=== PATIENT | female | born 1990 | race Two or more races ===

== ENCOUNTER 2016-11-23 12:07 | Emergency (ER) | payer MEDICAID, OTHER ==
[~2016-11-23] VITALS: Ht 157.5 cm; Wt 87.0 kg
[~2016-11-23 12:07] MED LIST: METH40TA3 PO; PTU PO; SERT100T PO
[2016-11-23] MEDS ORDERED: SODIUM CHLORIDE 0.9% 1,000 ML IV ONE (12:39)
[2016-11-23 12:56] LABS: HEMATOCRIT 32.6 % (34.6-47.8); HEMOGLOBIN 10.6 g/dL (11.7-16.4); WHITE BLOOD COUNT 6.4 x10^3/uL (3.4-10)
[2016-11-23] MEDS ORDERED: MORPHINE SULFATE 4 MG/ML, 1ML ONE (12:56)
[2016-11-23] MEDS ORDERED: ONDANSETRON 2MG/ML, 2ML ONE (12:56)
[2016-11-23] MEDS ORDERED: LORazepam 2 MG/ML, 1ML ONE (12:57)
[2016-11-23] MEDS ORDERED: MORPHINE SULFATE 4 MG/ML, 1ML IVPush PRN (13:00)
[2016-11-23] MEDS ORDERED: ONDANSETRON 2MG/ML, 2ML IVPush ONE (13:00)
[2016-11-23] MEDS ORDERED: LORazepam 2 MG/ML, 1ML IVPush ONE (13:00)
[2016-11-23 13:08] LABS: BLOOD UREA NITROGEN 6 mg/dL (7-18)
[2016-11-23 14:27] VITALS: BP 112/80
== END 2016-11-23 14:38 | disposition home or self-care (01) ==
LOC: ED 14:31
DX: G43.119 Migraine with aura, intractable, without status migrainosus (principal); G44.219 Episodic tension-type headache, not intractable; E05.90 Thyrotoxicosis, unspecified without thyrotoxic crisis or storm
CPT/HCPCS: 36415; 70450; 80048; 82040; 84439; 84443; 85025; 85610; 93005; 96361; 96374; 96375; 99285; J2060; J2405; J7030

== ENCOUNTER 2016-11-27 20:20 | Emergency (ER) | payer OTHER ==
[~2016-11-27] VITALS: Ht 157.5 cm; Wt 86.4 kg
[2016-11-27] MEDS ORDERED: SODIUM CHLORIDE 0.9% 1,000ML IVBOLUS ONE (21:30)
[2016-11-27] MEDS ORDERED: ONDANSETRON 2MG/ML, 2ML IVPush ONE (21:30)
[2016-11-27] MEDS ORDERED: MORPHINE SULFATE 4 MG/ML, 1ML IVPush PRN (21:30)
[2016-11-27] MEDS ORDERED: MORPHINE SULFATE 4 MG/ML, 1ML ONE (21:30)
[2016-11-27] MEDS ORDERED: ONDANSETRON 2MG/ML, 2ML ONE (21:30)
[2016-11-27 21:37] LABS: HEMATOCRIT 35.4 % (34.6-47.8); HEMOGLOBIN 11.3 g/dL (11.7-16.4); WHITE BLOOD COUNT 8.9 x10^3/uL (3.4-10)
[2016-11-27 21:45] LABS: BLOOD UREA NITROGEN 5 mg/dL (7-18)
[2016-11-27] MEDS ORDERED: KETOROLAC 30 MG/1 ML ONE (22:16)
[2016-11-27] MEDS ORDERED: DIPHENHYDRAMINE 50 MG/ML, 1ML ONE (22:17)
[2016-11-27] MEDS ORDERED: PROCHLORPERAZINE 5 MG/ML, 2ML ONE (22:17)
[2016-11-27] MEDS ORDERED: OMNIPAQUE 300 MG/ML, 10ML VIAL ONE (22:28)
[2016-11-27] MEDS ORDERED: PROCHLORPERAZINE 5 MG/ML, 2ML IVPush ONE (22:30)
[2016-11-27] MEDS ORDERED: DIPHENHYDRAMINE 50 MG/ML, 1ML IVPush ONE (22:30)
[2016-11-27] MEDS ORDERED: KETOROLAC 30 MG/1 ML IVPush ONE (22:30)
[2016-11-27 23:04] VITALS: BP 123/69
== END 2016-11-27 23:13 | disposition home or self-care (01) ==
LOC: ED 23:07
DX: H61.23 Impacted cerumen, bilateral (principal); K02.9 Dental caries, unspecified; R51 Headache; G43.909 Migraine, unspecified, not intractable, without status migrainosus; E05.90 Thyrotoxicosis, unspecified without thyrotoxic crisis or storm; Z90.49 Acquired absence of other specified parts of digestive tract
CPT/HCPCS: 36415; 70491; 80048; 82040; 85025; 96361; 96374; 96375; 99285; J0780; J1200; J1885; J2405; J7030; Q9967

== ENCOUNTER 2017-07-05 17:12 | Emergency (ER) | payer OTHER ==
[~2017-07-05] VITALS: Ht 157.5 cm; Wt 88.0 kg
[2017-07-05] MEDS ORDERED: SODIUM CHLORIDE 0.9% 1,000 ML IV ONE (17:28)
[2017-07-05] MEDS ORDERED: SODIUM CHLORIDE 0.9% 1,000ML IVBOLUS ONE (17:30)
[2017-07-05] MEDS ORDERED: ONDANSETRON ODT 4 MG PO ONE ×2 (17:30→22:00)
[2017-07-05] MEDS ORDERED: SODIUM CHLORIDE FLUSH 10ML SYR IVF ONE (17:30)
[2017-07-05] MEDS ORDERED: ACETAMINOPHEN 500 MG TABLET PO ONE (17:30)
[2017-07-05] MEDS ORDERED: ONDANSETRON ODT 4 MG ONE ×2 (17:45→22:01)
[2017-07-05] MEDS ORDERED: ACETAMINOPHEN 500 MG TABLET ONE (17:45)
[2017-07-05 18:09] LABS: BASOPHILS # (AUTO) 0.01 x10^3/uL (0-0.1); BASOPHILS % (AUTO) 0 % (0-1); EOSINOPHILS % (AUTO) 0 % (1-7); LYMPHOCYTES # (AUTO) 0.65 x10^3/uL (1-3.4); LYMPHOCYTES % (AUTO) 9 % (22-44); MD NO; MEAN CORPUSCULAR HEMOGLOBIN 22.7 pg (27.0-34.8); MEAN CORPUSCULAR HGB CONC 32.4 g/dL (32.4-35.8); MEAN CORPUSCULAR VOLUME 70.2 fL (80-100); MONOCYTES # (AUTO) 0.13 x10^3/uL (0.2-0.8); MONOCYTES % (AUTO) 2 % (2-9); NEUTROPHILS # (AUTO) 6.65 x10^3/uL (1.8-6.8); NEUTROPHILS % (AUTO) 89 % (42-75); PLATELET COUNT 301 x10^3/uL (130-400); RED BLOOD COUNT 3.77 x10^6/uL (3.82-5.3); RED CELL DISTRIBUTION WIDTH 18.3 % (9.6-15.2)
[2017-07-05 18:21] LABS: ALANINE AMINOTRANSFERASE 39 U/L (12-78); ALBUMIN 2.8 g/dL (3.4-5.0); ANION GAP 8 mmol/L (5-15); CALCIUM 6.7 mg/dL (8.5-10.1); CHLORIDE 108 mmol/L (98-107)
[2017-07-05 18:25] LABS: ALKALINE PHOSPHATASE 69 U/L (45-117); BILIRUBIN,TOTAL 0.6 mg/dL (0.2-1.0); TOTAL PROTEIN 6.7 g/dL (6.4-8.2)
[2017-07-05 18:35] LABS: MICROSCOPIC INDICATED
[2017-07-05 18:38] LABS: CULTURE INDICATED? YES
[2017-07-05] MEDS ORDERED: CALCIUM GLUCONATE 9.2 MEQ in SODIUM CHLORIDE 0.9% 100 ML IV ONE (19:00)
[2017-07-05 19:19] LABS: GLUCOSE, CSF 68 mg/dL (40-80); TOTAL PROTEIN,CSF 18 mg/dL (15-45)
[2017-07-05] MEDS ORDERED: CEFTRIAXONE PMX 1GM/50ML 50 ML ONE (20:28)
[2017-07-05] MEDS ORDERED: CEFTRIAXONE PMX 1GM/50ML 50 ML IV ONE (20:30)
[2017-07-05 21:24] VITALS: BP 100/50
== END 2017-07-05 22:06 | disposition home or self-care (01) ==
LOC: ED 18:01
DX: R50.9 Fever, unspecified (principal); D50.0 Iron deficiency anemia secondary to blood loss (chronic); E83.51 Hypocalcemia; E87.6 Hypokalemia; E05.90 Thyrotoxicosis, unspecified without thyrotoxic crisis or storm; Z90.49 Acquired absence of other specified parts of digestive tract
CPT/HCPCS: 36415; 62270; 71045; 80053; 81001; 82945; 83605; 83735; 84145; 84157; 84703; 85025; 87040; 87070; 87077; 87086; 87205; 89051; 93005; 96361; 96365; 96367; 99285; J0696; J7030; Q0162; 87186

== ENCOUNTER 2019-05-24 23:08 | Emergency (ER) | payer OTHER ==
[~2019-05-24] VITALS: Ht 157.5 cm; Wt 82.3 kg
[2019-05-25] MEDS ORDERED: SODIUM CHLORIDE FLUSH 10ML SYR IVF ONE (00:30)
[2019-05-25] MEDS ORDERED: SODIUM CHLORIDE 0.9% 1,000ML IVBOLUS ONE (00:30)
[2019-05-25] MEDS ORDERED: ONDANSETRON 2MG/ML, 2ML IVPush ONE ×3 (00:30→03:00)
[2019-05-25 00:55] LABS: ALANINE AMINOTRANSFERASE 49 U/L (12-78); ALBUMIN 3.8 g/dL (3.4-5.0); ANION GAP 7 mmol/L (5-15); CALCIUM 9.4 mg/dL (8.5-10.1); CHLORIDE 105 mmol/L (98-107); CREATININE 0.52 mg/dL (0.55-1.02)
[2019-05-25 00:57] LABS: ALKALINE PHOSPHATASE 108 U/L (45-117); BILIRUBIN,TOTAL 0.8 mg/dL (0.2-1.0); TOTAL PROTEIN 8.8 g/dL (6.4-8.2)
[2019-05-25 01:11] LABS: MEAN CORPUSCULAR HEMOGLOBIN 21.6 pg (27.0-34.8); MEAN CORPUSCULAR HGB CONC 31.3 g/dL (32.4-35.8); MEAN CORPUSCULAR VOLUME 68.9 fL (80-100); MEAN PLATELET VOLUME 8.1 fL (7.4-10.4); PLATELET COUNT 345 x10^3/uL (130-400); RED BLOOD COUNT 4.89 x10^6/uL (3.82-5.3); RED CELL DISTRIBUTION WIDTH 25.1 % (9.6-15.2)
[2019-05-25 01:13] LABS: ANISOCYTOSIS 1+; BASOPHILS # (AUTO) 0.08 x10^3/uL (0-0.1); BASOPHILS % (AUTO) 1 % (0-1); EOSINOPHILS # (AUTO) 0.25 x10^3/uL (0-0.4); EOSINOPHILS % (AUTO) 3 % (1-7); LYMPHOCYTES # (AUTO) 2.61 x10^3/uL (1-3.4); LYMPHOCYTES % (AUTO) 33 % (22-44); MD MORPH REVIEW ONLY; MONOCYTES # (AUTO) 0.44 x10^3/uL (0.2-0.8); MONOCYTES % (AUTO) 6 % (2-9); NEUTROPHILS # (AUTO) 4.58 x10^3/uL (1.8-6.8); NEUTROPHILS % (AUTO) 58 % (42-75)
[2019-05-25 01:14] LABS: <PLATELET ESTIMATE> ADEQUATE; <PLT MORPHOLOGY> NORMAL PLT MORPH; MICROCYTOSIS 1+; OVALOCYTES 1+; POLYCHROMASIA 1+
[2019-05-25] MEDS ORDERED: ONDANSETRON 2MG/ML, 2ML ONE ×2 (01:40→02:41)
[2019-05-25] MEDS ORDERED: MORPHINE SULFATE 4 MG/ML, 1ML ONE ×3 (01:41→03:51)
[2019-05-25] MEDS: MORPHINE SULFATE 4 MG/ML, 1ML IVPush PRN ×2 (01:43→02:44)
[2019-05-25] MEDS ORDERED: OMNIPAQUE 350 MG/ML, 100ML BOTTLE ONE (02:19)
[2019-05-25 03:40] LABS: MICROSCOPIC NOT IND
[2019-05-25 03:41] LABS: CULTURE INDICATED? NO
[2019-05-25] MEDS ORDERED: MORPHINE SULFATE 4 MG/ML, 1ML IVPush STA (04:01)
[2019-05-25 05:48] VITALS: BP 108/54
== END 2019-05-25 06:07 | disposition home or self-care (01) ==
LOC: ED 05-25 01:58
DX: N30.00 Acute cystitis without hematuria (principal); R10.33 Periumbilical pain; R10.31 Right lower quadrant pain; R11.10 Vomiting, unspecified; R19.7 Diarrhea, unspecified; G43.909 Migraine, unspecified, not intractable, without status migrainosus
CPT/HCPCS: 36415; 74177; 80053; 81003; 83690; 85025; 96361; 96374; 96375; 96376; 99285; J2270; J2405; J7030; Q9967